=== PATIENT | female | born 1995 | race Caucasian/White ===

== ENCOUNTER 2018-04-21 05:37 | Emergency (ER) | payer OTHER ==
[~2018-04-21] VITALS: Ht 165.1 cm; Wt 65.8 kg
[2018-04-21 05:45] VITALS: Ht 165.1 cm; Wt 65.8 kg
[2018-04-21 06:34] VITALS: BP 119/78
== END 2018-04-21 06:34 | disposition home or self-care (01) ==
LOC: ED 05:37
DX: B85.0 Pediculosis due to Pediculus humanus capitis (principal)

== ENCOUNTER 2018-10-18 14:15 | Emergency (ER) | payer OTHER ==
[~2018-10-18] VITALS: Ht 165.1 cm; Wt 67.6 kg
[2018-10-18 14:18] VITALS: Ht 165.1 cm; Wt 67.6 kg
[2018-10-18 15:01] LABS: BASOPHIL % 0.3 % (0-2); PLATELET COUNT 234 x10^3mcL (130-400); RED CELL DISTRIBUTION WIDTH 13.9 % (11.5-14.5)
[2018-10-18 15:10] LABS: CALCIUM 8.8 mg/dL (8.5-10.1); CARBON DIOXIDE 23.4 mmol/L (21-32); CHLORIDE SERUM 105 mmol/L (98-107); CREATININE SERUM 0.5 mg/dL (0.6-1.0); GFR1 > 60 mL/min; GLUCOSE SERUM 105 mg/dL (74-106); POTASSIUM SERUM 3.6 mmol/L (3.5-5.1); SODIUM SERUM 140 mmol/L (136-145)
[2018-10-18 15:24] LABS: ALKALINE PHOSPHATASE 55 U/L (46-116); ALT/SGPT 14 U/L (14-59); AST/SGOT 8 U/L (15-37); BILIRUBIN TOTAL 0.34 mg/dL (0.20-1.00); LIPASE 116 IU/L (73-393); TOTAL PROTEIN, SERUM 6.4 g/dL (6.4-8.2)
[2018-10-18 15:26] LABS: ALBUMIN 2.7 g/dL (3.4-5.0)
[2018-10-18 15:40] LABS: microscopic required? NO
[2018-10-18 15:49] LABS: UA SPECIFIC GRAVITY >=1.030 (1.005-1.035); urine erythrocyte NEGATIVE (NEGATIVE)
[2018-10-18 17:30] VITALS: BP 119/65
== END 2018-10-18 17:30 | disposition home or self-care (01) ==
LOC: ED 14:15
PROVIDERS: Emergency Medicine
DX: O99.612 Diseases of the digestive system complicating pregnancy, second trimester (principal); K80.20 Calculus of gallbladder without cholecystitis without obstruction; O99.512 Diseases of the respiratory system complicating pregnancy, second trimester; J45.909 Unspecified asthma, uncomplicated; Z88.0 Allergy status to penicillin; Z98.890 Other specified postprocedural states; Z3A.21 21 weeks gestation of pregnancy
CPT/HCPCS: 36415

== ENCOUNTER 2018-10-29 05:26 | Emergency (ER) | payer OTHER ==
[~2018-10-29] VITALS: Ht 165.1 cm; Wt 67.4 kg
[2018-10-29 05:52] VITALS: Ht 165.1 cm; Wt 67.4 kg
[2018-10-29 06:21] VITALS: BP 109/70
== END 2018-10-29 06:21 | disposition home or self-care (01) ==
LOC: ED 05:26
DX: B30.9 Viral conjunctivitis, unspecified (principal)

== ENCOUNTER 2018-12-07 18:31 | Emergency (ER) | payer OTHER ==
[~2018-12-07] VITALS: Ht 165.1 cm; Wt 69.9 kg
[2018-12-07 18:49] VITALS: BP 123/63; Ht 165.1 cm; Wt 69.9 kg
== END 2018-12-07 21:12 | disposition left against medical advice (07) ==
LOC: ED 18:31
DX: Z53.21 Procedure and treatment not carried out due to patient leaving prior to being seen by health care provider (principal)

== ENCOUNTER 2019-01-10 14:35 | Emergency (ER) | payer OTHER ==
[~2019-01-10] VITALS: Ht 165.1 cm; Wt 70.3 kg
[2019-01-10 14:47] VITALS: Ht 165.1 cm; Wt 70.3 kg
[2019-01-10 17:50] LABS: CALCIUM 8.5 mg/dL (8.5-10.1); CARBON DIOXIDE 24.4 mmol/L (21-32); CHLORIDE SERUM 105 mmol/L (98-107); CREATININE SERUM 0.6 mg/dL (0.6-1.0); GFR1 > 60 mL/min; GLUCOSE SERUM 96 mg/dL (74-106); POTASSIUM SERUM 4.2 mmol/L (3.5-5.1); SODIUM SERUM 141 mmol/L (136-145)
[2019-01-10 17:51] LABS: PLATELET COUNT 213 x10^3mcL (130-400)
[2019-01-10 17:54] LABS: BASOPHIL % 0 % (0-2)
[2019-01-10 17:55] LABS: ALKALINE PHOSPHATASE 91 U/L (46-116); ALT/SGPT 14 U/L (14-59); AST/SGOT 13 U/L (15-37); BILIRUBIN TOTAL 0.4 mg/dL (0.20-1.00); TOTAL PROTEIN, SERUM 6.9 g/dL (6.4-8.2)
[2019-01-10 17:56] LABS: ALBUMIN 2.6 g/dL (3.4-5.0)
[2019-01-10 18:57] VITALS: BP 105/57
== END 2019-01-10 18:58 | disposition home or self-care (01) ==
LOC: ED 14:35
PROVIDERS: Emergency Medicine
DX: O26.893 Other specified pregnancy related conditions, third trimester (principal); R51 Headache; J45.909 Unspecified asthma, uncomplicated; Z3A.34 34 weeks gestation of pregnancy; Z88.0 Allergy status to penicillin
CPT/HCPCS: J2765; J7030

== ENCOUNTER 2019-08-08 22:18 | Emergency (ER) | payer OTHER ==
[~2019-08-08] VITALS: Ht 165.1 cm; Wt 64.9 kg
[2019-08-08 22:30] VITALS: Ht 165.1 cm; Wt 64.9 kg
[2019-08-09 00:28] VITALS: BP 116/62
== END 2019-08-09 00:30 | disposition home or self-care (01) ==
LOC: ED 22:18
DX: J03.90 Acute tonsillitis, unspecified (principal); J45.909 Unspecified asthma, uncomplicated; Z88.0 Allergy status to penicillin

== ENCOUNTER 2019-11-05 11:55 | Emergency (ER) | payer OTHER ==
[~2019-11-05] VITALS: Ht 165.1 cm; Wt 61.7 kg
[2019-11-05 12:00] VITALS: BP 115/83; Ht 165.1 cm; Wt 61.7 kg
== END 2019-11-05 13:11 | disposition home or self-care (01) ==
LOC: ED 11:55
DX: J45.909 Unspecified asthma, uncomplicated (principal); Z20.828 Contact with and (suspected) exposure to other viral communicable diseases; Z88.0 Allergy status to penicillin; Z98.890 Other specified postprocedural states
CPT/HCPCS: U0003-CS